=== PATIENT | female | born 1960 | race African-American/Black ===

== ENCOUNTER 2016-10-05 08:39 | Emergency (ER) | payer MEDICAID, OTHER ==
[~2016-10-05] VITALS: Ht 154.9 cm; Wt 94.0 kg
[~2016-10-05 08:39] MED LIST: ADVA250A INH; ALBU8I INH; AMLO5TAB22 PO; ENAL5TAB PO; HYDR-2768 PO; MONT10 PO; OMEP20.62 PO
[2016-10-05 08:41] VITALS: BP 189/124; PULSE 72; RESP 20; TEMP 98.6; O2SAT 97
[2016-10-05] MEDS ORDERED: MONT10TA4 PO (08:56)
[2016-10-05] MEDS ORDERED: VENTAER INH ×2 (08:56→11:12)
[2016-10-05] MEDS ORDERED: DESO0.0560 TOPICAL (08:56)
[2016-10-05] MEDS ORDERED: PULM180I INH (08:56)
[2016-10-05] MEDS ORDERED: VALS1TAB65 PO ×2 (08:56→11:12)
[2016-10-05] MEDS ORDERED: VALA500T PO (08:56)
[2016-10-05] MEDS ORDERED: OMEP20TA PO ×2 (08:56→11:12)
[2016-10-05] MEDS ORDERED: FLUT50SP EACH NARE (08:56)
[2016-10-05] MEDS ORDERED: SODIUM CHLORIDE 0.9% FLUSH 10 ML FLUSH IVF PRN (09:45)
--- NOTE | 2016-10-05 10:19 | RADRPT ---
EXAM DATE/TIME: 10/05/2016 10:07 [facility] COMPARISON: No previous studies available for comparison. INDICATIONS : Chest Pain, Hypertension MEDICAL HISTORY : None. SURGICAL HISTORY : None. ENCOUNTER: Initial ACUITY: 1 day PAIN SCORE: 4/10 LOCATION: Bilateral chest FINDINGS: PA and lateral views of the chest demonstrate the lungs to be symmetrically aerated without evidence of mass, infiltrate or effusion. The cardiomediastinal contours are unremarkable. Osseous structure s are intact. CONCLUSION: No acute disease. Dakotah Yan MD on October 05, 2016 at 10:16 Board Certified Radiologist. This report was verified electronically.
[2016-10-05 10:23] LABS: AUTOMATED NEUTROPHIL # 4.1 TH/MM3 (1.8-7.7); BASOPHIL % 0.5 % (0.0-2.0); EOSINOPHIL # 0.7 TH/MM3 (0-0.4); EOSINOPHIL % 9.6 % (0.0-4.0); HEMATOCRIT 40.8 % (35.0-46.0); HEMO FLAGS DIFF FINAL; LYMPH % 21.2 % (9.0-44.0); LYMPHOCYTE # 1.5 TH/MM3 (1.0-4.8); MEAN CELL VOLUME 82.8 FL (80.0-100.0); MEAN CORPUSCULAR HGB CONC 32.7 % (32.0-36.0); MONO % 9.3 % (0.0-8.0); NEUT % 59.4 % (16.0-70.0); PLATELET COUNT 225 TH/MM3 (150-450); RED BLOOD COUNT 4.92 MIL/MM3 (4.00-5.30); RED CELL DISTRIBUTION WIDTH 14.9 % (11.6-17.2); WHITE BLOOD COUNT 6.9 TH/MM3 (4.0-11.0)
--- NOTE | 2016-10-05 10:27 | PD ---
HPI Chief Complaint: Headache Time Seen by Provider: 09:38 Travel History International Travel<30 days: No Contact w/Intl Traveler<30days: No Traveled to known affect area: No History of Present Illness HPI Patient's 56-year-old female presents emergency department just not feeling well. Patient states that she was feeling a little achy this morning and has been sick with upper respiratory symptoms for the past few days. She went over to take a blood pressure noted to have markedly elevated. 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 She also endorses some mild headache which is in the sinus areas. Denies any fevers denies abdominal pain. She does endorse some darkening of urine on the review of systems. PFSH Past Medical History Anemia: Yes Asthma: Yes Cardiovascular Problems: Yes Diminished Hearing: No GERD: Yes Headaches: Yes Hypertension: Yes Respiratory: Yes Migraines: Yes : 4 Para: 3 Miscarriage: 1 : 0 Tubal Ligation: Yes Past Surgical History Hysterectomy: Yes Social History Alcohol Use: No Tobacco Use: No Substance Use: No Allergies-Medications (Allergen,Severity, Reaction): Coded Allergies: Penicillin (Verified Allergy, Severe, 10/05/16) Lopressor (Verified Adverse Reaction, Severe, 10/05/16) "RETAIN FLUID" Reported Meds & Prescriptions Reported Meds & Active Scripts Active Azithromycin 250 Mg Tab 250 Mg PO DIRECTED Take 2 tabs (500 mg) on day 1 then 1 tab daily x 4 days. Ventolin Hfa 18 GM Inh (Albuterol Sulfate) 90 Mcg/Act Aer 1 Puff INH Q4H PRN Omeprazole 20 Mg Tab 20 Mg PO DAILY Valsartan 160 Mg Tab 160 Mg PO DAILY Reported Valacyclovir (Valacyclovir HCl) 500 Mg Tab 500 Mg PO BID Desonide Topical (Desonide) 0.05% Cream 1 Applic TOPICAL BID Pulmicort Flexhaler (Budesonide Powder Inh) 180 Mcg/Act Inhp 180 Mcg INH Q12HR Fluticasone Nasal [place] 50 Mcg/Act Naspr 50 Mcg EACH NARE BID 50 mcg/spray Montelukast (Montelukast Sodium) 10 Mg Tab 10 Mg PO HS Review of Systems Except as stated in HPI: all other systems reviewed are Neg Physical Exam Narrative GENERAL: Well-developed well-nourished no apparent distress SKIN: Focused skin assessment warm/dry. HEAD: Atraumatic. Normocephalic. EYES: Pupils equal and round. No scleral icterus. No injection or drainage. ENT: No nasal bleeding or discharge. Mucous membranes pink and moist. TMs clear bilaterally, oropharynx clear and moist. NECK: Trachea midline. No JVD. CARDIOVASCULAR: Regular rate and rhythm. No murmur appreciated. RESPIRATORY: No accessory muscle use. Clear to auscultation. Breath sounds equal bilaterally. GASTROINTESTINAL: Abdomen soft, non-tender, nondistended. Hepatic and splenic margins not palpable. MUSCULOSKELETAL: No obvious deformities. No clubbing. No cyanosis. No edema. NEUROLOGICAL: Awake and alert. No obvious cranial nerve deficits. Motor grossly within normal limits. Normal speech. PSYCHIATRIC: Appropriate mood and affect; insight and judgment normal. Data Data Last Documented VS Vital Signs Date Time Temp Pulse Resp B/P Pulse Ox O2 Delivery O2 Flow Rate FiO2 10/05/16 11:31 98 10/05/16 11:30 Room Air 10/05/16 08:41 98.6 72 20 189/124 Orders Basic Metabolic Panel (Bmp) (10/05/16 09:38) Complete Blood Count With Diff (10/05/16 09:38) Magnesium (Mg) (10/05/16 09:38) Prothrombin Time / Inr (Pt) (10/05/16 09:38) Act Partial Throm Time (Ptt) (10/05/16 09:38) Troponin I (10/05/16 09:38) Ecg Monitoring (10/05/16 09:38) Iv Access Insert/Monitor (10/05/16 09:38) Oximetry (10/05/16 09:38) Oxygen Administration (10/05/16 09:38) Sodium Chloride 0.9% Flush (Ns Flush) (10/05/16 09:45) Chest, Pa & Lat (10/05/16 09:38) Urinalysis - C+S If Indicated (10/05/16 09:38) Acetaminophen (Tylenol) (10/05/16 11:15) Labs Laboratory Tests Test 10/05/16 10:00 White Blood Count 6.9 TH/MM3 Red Blood Count 4.92 MIL/MM3 Hemoglobin 13.3 GM/DL Hematocrit 40.8 % Mean Corpuscular Volume 82.8 FL Mean Corpuscular Hemoglobin 27.0 PG Mean Corpuscular Hemoglobin 32.7 % Concent Red Cell Distribution Width 14.9 % Platelet Count 225 TH/MM3 Mean Platelet Volume 9.2 FL Neutrophils (%) (Auto) 59.4 % Lymphocytes (%) (Auto) 21.2 % Monocytes (%) (Auto) 9.3 % Eosinophils (%) (Auto) 9.6 % Basophils (%) (Auto) 0.5 % Neutrophils # (Auto) 4.1 TH/MM3 Lymphocytes # (Auto) 1.5 TH/MM3 Monocytes # (Auto) 0.6 TH/MM3 Eosinophils # (Auto) 0.7 TH/MM3 Basophils # (Auto) 0.0 TH/MM3 CBC Comment DIFF FINAL Differential Comment Prothrombin Time 11.1 SEC Prothromb Time International 1.0 RATIO Ratio Activated Partial 32.6 SEC Thromboplast Time Urine Color YELLOW Urine Turbidity CLEAR Urine pH 6.5 Urine Specific [place] 1.024 Urine Protein NEG mg/dL Urine Glucose (UA) NEG mg/dL Urine Ketones NEG mg/dL Urine Occult Blood NEG Urine Nitrite NEG Urine Bilirubin NEG Urine Urobilinogen LESS THAN 2.0 MG/DL Urine Leukocyte Esterase NEG Urine RBC LESS THAN 1 /hpf Urine WBC 1 /hpf Urine Squamous Epithelial 2 /hpf Cells Urine Mucus FEW /lpf Microscopic Urinalysis Comment CULT NOT INDICATED Sodium Level 141 MEQ/L Potassium Level 3.8 MEQ/L Chloride Level 105 MEQ/L Carbon Dioxide Level 29.3 MEQ/L Anion Gap 7 MEQ/L Blood Urea Nitrogen 18 MG/DL Creatinine 1.04 MG/DL Estimat Glomerular Filtration 66 ML/MIN Rate Random Glucose 93 MG/DL Calcium Level 9.3 MG/DL Magnesium Level 2.3 MG/DL Troponin I LESS THAN 0.02 NG/ML MDM Medical Decision Making Medical Screen Exam Complete: Yes Emergency Medical Condition: Yes Differential Diagnosis URI, asymmetric hypertension, hypertensive emergency seems less likely. Narrative Course Patient was roomed in the emergency department, she appears well in no apparent distress. She is hypertensive but has been out of her medicines for some time. There is no indication for emergent lowering of blood pressure as she has no indication of end organ failure. She was initially offered medicine for her mild headache and declined, towards the end of the encounter she did request something was given Tylenol. No indication for imaging of her head. She stable for discharge. Diagnosis Primary Impression: Sinusitis Qualified Code: J01.11 - Acute recurrent frontal sinusitis Additional Impression: Hypertension Referrals: [facility] Med/Other Pt SpecificInfo: Prescription(s) given Scripts Azithromycin 250 Mg [id number] Mg PO DIRECTED #6 TAB Ref 0 Take 2 tabs (500 mg) on day 1 then 1 tab daily x 4 days. Prov:Austin Stone MD 10/05/16 Albuterol 18 GM Inh (Ventolin Hfa 18 GM Inh)90 Mcg/Act Aer1 Puff INH Q4H PRN ( SHORTNESS OF BREATH) #1 INHALER Ref 0 Prov:Austin Stone MD 10/05/16 Omeprazole 20 Mg Tab20 Mg PO DAILY #30 TAB Ref 0 Prov:Austin Stone MD 10/05/16 Valsartan 160 Mg [id number] Mg PO DAILY #30 TAB Ref 0 Prov:Austin Stone MD 10/05/16 Disposition: 01 DISCHARGE HOME Condition: Stable Austin Stone MD October 05, 2016 10:27
[2016-10-05 10:31] LABS: BLOOD, URINE NEG (NEG); COMMENT (UR) CULT NOT INDICATED; CULTURE IF INDICATED CULT NOT INDICATED; GLUCOSE,URINE NEG (NEG); KETONE, URINE NEG (NEG); MUCUS URINE FEW /lpf (OCC); NITRITE,URINE NEG (NEG); PH, URINE 6.5 (5.0-8.5); SQUAMOUS EPITHELIAL CELL URINE 2 /hpf (0-5); URINE COLOR YELLOW (YELLW/STRAW)
[2016-10-05 10:37] LABS: APTT (PATIENT) 32.6 SEC (24.3-30.1); PROTHROMBIN TIME - PATIENT 11.1 SEC (9.8-11.6)
[2016-10-05 10:56] LABS: ANION GAP 7 MEQ/L (5-15); BICARBONATE 29.3 MEQ/L (21.0-32.0); BLOOD UREA NITROGEN 18 MG/DL (7-18); CHLORIDE 105 MEQ/L (98-107); GLOMERULAR FILTRATION RATE 66 ML/MIN (>89); MAGNESIUM 2.3 MG/DL (1.5-2.5); POTASSIUM 3.8 MEQ/L (3.5-5.1); SODIUM (NA) 141 MEQ/L (136-145)
[2016-10-05] MEDS ORDERED: AZIT250T3 PO (11:12)
[2016-10-05] MEDS ORDERED: ACETAMINOPHEN 325 MG TAB PO ONE (11:15)
[2016-10-05 11:31] VITALS: O2SAT 98
== END 2016-10-05 11:40 | disposition home or self-care (01) ==
LOC: NEPC 08:39
DX: D64.9 Anemia, unspecified (principal); J32.9 Chronic sinusitis, unspecified; I10 Essential (primary) hypertension; R51 Headache; J45.909 Unspecified asthma, uncomplicated
CPT/HCPCS: 71020; 80048; 81001; 83735; 84484; 85025; 85610; 85730

== ENCOUNTER 2017-01-18 19:18 | Emergency (ER) | payer MEDICAID, OTHER ==
[~2017-01-18] VITALS: Ht 172.7 cm; Wt 94.0 kg
[~2017-01-18 19:18] MED LIST changes: -ADVA250A INH; -ALBU8I INH; -AMLO5TAB22 PO; +AZIT250T3 PO; +DESO0.0560 TOPICAL; -ENAL5TAB PO; +FLUT50SP EACH NARE; -HYDR-2768 PO; -MONT10 PO; +MONT10TA4 PO; -OMEP20.62 PO; +OMEP20TA PO; +PULM180I INH; +VALA500T PO; +VALS1TAB65 PO; +VENTAER INH
[2017-01-18 19:21] VITALS: BP 177/109; PULSE 85; RESP 16; TEMP 98.3; O2SAT 97
[2017-01-18] MEDS ORDERED: CHOL1CAP14 PO (21:58)
[2017-01-18 21:59] VITALS: BP 176/97; PULSE 75; RESP 18; O2SAT 98
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
[2017-01-18] MEDS ORDERED: ROBA500T PO (22:21)
[2017-01-18] MEDS ORDERED: NAPR500 PO (22:21)
== END 2017-01-18 22:44 | disposition home or self-care (01) ==
LOC: NEPE 19:18
DX: M79.1 Myalgia (principal); I10 Essential (primary) hypertension
CPT/HCPCS: 99283

== ENCOUNTER → 2017-03-19 | Outpatient (CLI) | payer OTHER ==
[~2017-03-19] MED LIST changes: -AZIT250T3 PO; +CHOL1CAP14 PO; +NAPR500 PO; +ROBA500T PO
--- NOTE | 2017-03-19 09:29 | RADRPT ---
EXAM DATE/TIME: 03/19/2017 09:15 [facility] COMPARISON: CHEST PA & LAT, October 05, 2016, 10:07. INDICATIONS : Hypertension. Asthma. MEDICAL HISTORY : Hypertension. Gastroesophageal reflux disease. Asthma. SURGICAL HISTORY : Tubal ligation. Hysterectomy. ENCOUNTER: Initial ACUITY: 3 days PAIN SCORE: 0/10 LOCATION: chest FINDINGS: Minimal bibasilar parenchymal changes without significant hyperinflation. The cardiomediastinal cont ours are unremarkable. Osseous structures are intact. CONCLUSION: Minimal bibasilar parenchymal changes. Bi Rashid MD FACR on March 19, 2017 at 9:27 Board Certified Radiologist. This report was verified electronically.
== END ==
LOC: HRAD 08:47
DX: I10 Essential (primary) hypertension (principal); J45.909 Unspecified asthma, uncomplicated; M54.2 Cervicalgia
CPT/HCPCS: 71020

== ENCOUNTER → 2017-10-15 | Outpatient (CLI) | payer OTHER ==
[~2017-10-15] MED LIST changes: -CHOL1CAP14 PO; +D 50CAP2 PO; +DICL75TA PO; -OMEP20TA PO; +OMEP20TA93 PO
--- NOTE | 2017-10-15 14:31 | RADRPT ---
EXAM DATE/TIME: 10/15/2017 12:54 [facility] COMPARISON: No previous studies available for comparison. INDICATIONS : Radiculopathy and Spina Bifida. MEDICAL HISTORY : Hypertension. Gastroesophageal reflux disease. Asthma SURGICAL HISTORY : Hysterectomy. Tubal ligation. ENCOUNTER: Initial ACUITY: 1 day PAIN SCORE: 0/10 LOCATION: Neck pain. FINDINGS: Five view examination was performed. Mild straightening of the lordotic curvature with multilevel de generative disc disease as evident by loss of disc height from C3-4 through C6-7. Marginal spurs are seen at multiple cervical levels. Oblique images show uncovertebral ridging encroaching on the neural foramina leftward at C6-7 and rightward at C5-6. Foramina otherwise appear to be intact. The dens is intact and the lateral masses are symmetric there prevertebral soft tissues are within normal limits . CONCLUSION: 1. Multilevel degenerative disc disease with some loss of disc height from C3-4 through C6-7. 2. Uncovertebral ridging encroaching on neural foramina rightward at C5-6 and leftward at C6-7. 3. No acute fracture or listhesis. Cody Dolan MD on October 15, 2017 at 14:26 Board Certified Radiologist. This report was verified electronically.
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
== END ==
LOC: HRAD 12:17
DX: M54.10 Radiculopathy, site unspecified (principal); Q05.9 Spina bifida, unspecified
CPT/HCPCS: 72050; 72110

== ENCOUNTER 2017-10-25 17:54 | Emergency (ER) | payer OTHER ==
[~2017-10-25 17:54] MED LIST changes: -DICL75TA PO
[2017-10-25 17:56] VITALS: BP 157/83; PULSE 85; RESP 16; TEMP 97.8; O2SAT 99
--- NOTE | 2017-10-25 19:30 | RADRPT ---
EXAM DATE: 10/25/2017 7:15 PM EDT AGE/SEX: 57 years / Female INDICATIONS: Right knee pain, fall. CLINICAL DATA: This is the patient's initial encounter. Patient reports that signs and symptoms have been present for 2 days and indicates a pain score of 8/10. MEDICAL/SURGICAL HISTORY: None. None. COMPARISON: No prior [facility] exams available for comparison. FINDINGS: Bony structures are intact and in normal alignment. Joints are intact without dislocation or signifi cant arthropathy. Osseous density is normal. Soft tissues are unremarkable. No radiopaque foreign bodies seen. CONCLUSION: No evidence of recent bony injury. Electronically signed by: Josef Duval MD 10/25/2017 7:29 PM EDT
[2017-10-25] MEDS ORDERED: DICL75TA PO (20:23)
--- NOTE | 2017-10-25 20:35 | PD ---
HPI Chief Complaint: Injury Time Seen by Provider: 18:24 Travel History International Travel<30 days: No Contact w/Intl Traveler<30days: No Traveled to known affect area: No History of Present Illness HPI 57-year-old female that presents to the ED for evaluation of right leg injury after fall. Patient had a mechanical fall yesterday where she lost her footing and her foot twisted. Per patient she is been having pain ever since in her leg but she is more concerned because she feels like her legs about to give out on her. She states that she has to walk in a certain way otherwise it will happen. She states that the pain currently 7 out of 10 is not as severe. She does have some bruising from the fall. She denies hitting her head or losing consciousness. No blood thinner use. No previous injury other than when she was younger. She denies ever having surgeries on the leg however. Allergy to latex and metoprolol and penicillin. Has been taking [id number] remedies with minimal relief. No chest pain or shortness of breath. No back or arm pain. No neck pain. PFSH Past Medical History Anemia: Yes Asthma: Yes Cardiovascular Problems: Yes Diminished Hearing: No GERD: Yes Headaches: Yes Hypertension: Yes Respiratory: Yes Migraines: Yes : 4 Para: 3 Miscarriage: 1 : 0 Tubal Ligation: Yes Past Surgical History Hysterectomy: Yes Social History Alcohol Use: No Tobacco Use: No Substance Use: No Allergies-Medications (Allergen,Severity, Reaction): Coded Allergies: penicillin G (Unverified Allergy, Severe, 10/25/17) latex (Verified Allergy, Unknown, 10/25/17) metoprolol (Unverified Adverse Reaction, Severe, 10/25/17) "RETAIN FLUID" Reported Meds & Prescriptions Reported Meds & Active Scripts Active Diclofenac Sodium DR (Diclofenac Sodium) 75 Mg Tabdr 75 Mg PO BID PRN Robaxin (Methocarbamol) 500 Mg Tab 500 Mg PO Q8HR PRN Naprosyn (Naproxen) 500 Mg Tab 500 Mg PO Q12HR PRN Ventolin Hfa 18 GM Inh (Albuterol Sulfate) 90 Mcg/Act Aer 1 Puff INH Q4H PRN Omeprazole 20 Mg Tab 20 Mg PO DAILY Valsartan 160 Mg Tab 160 Mg PO DAILY Reported D3 Maximum Strength (Cholecalciferol) 5,000 Unit Cap 2,000 Units PO DAILY Valacyclovir (Valacyclovir HCl) 500 Mg Tab 500 Mg PO BID Desonide Topical (Desonide) 0.05% Cream 1 Applic TOPICAL BID Pulmicort Flexhaler (Budesonide Powder Inh) 180 Mcg/Act Inhp 180 Mcg INH Q12HR Fluticasone Nasal [place] 50 Mcg/Act Naspr 50 Mcg EACH NARE BID 50 mcg/spray Montelukast (Montelukast Sodium) 10 Mg Tab 10 Mg PO HS Review of Systems Except as stated in HPI: all other systems reviewed are Neg Physical Exam Narrative GENERAL: SKIN: Warm and dry. HEAD: Atraumatic. Normocephalic. EYES: Pupils equal and round. No scleral icterus. No injection or drainage. ENT: No nasal bleeding or discharge. Mucous membranes pink and moist. Tongue is midline. No uvula deviation. NECK: Trachea midline. No JVD. CARDIOVASCULAR: Regular rate and rhythm. No murmurs, S3, S4. RESPIRATORY: No accessory muscle use. Clear to auscultation. Breath sounds equal bilaterally. GASTROINTESTINAL: Abdomen soft, non-tender, nondistended. Hepatic and splenic margins not palpable. MUSCULOSKELETAL: Extremities without clubbing, cyanosis, or edema. No obvious deformities. Full range of motion of the upper and lower extremities bilaterally. 2+ pulses bilaterally. Valgus and varus test negative. Anterior- posterior drawer test negative. Patient does have some bruising noted on the medial and lateral aspect of the knee. No obvious bony deformity noted. Sensation intact bilaterally. 2+ pulses bilaterally. She does have a bruise to the right tib-fib but no sign of bony injury or pain on the bones themselves. NEUROLOGICAL: Awake and alert. No obvious cranial nerve deficits. Motor grossly within normal limits. Five out of 5 muscle strength in the arms and legs. Normal speech. PSYCHIATRIC: Appropriate mood and affect; insight and judgment normal. Data Data Last Documented VS Vital Signs Date Time Temp Pulse Resp B/P (MAP) Pulse Ox O2 Delivery O2 Flow Rate FiO2 10/25/17 18:34 78 16 99 Room Air 10/25/17 17:56 97.8 157/83 (107) Orders Orders Knee, Complete (4vws) (10/25/17 ) Splint Or Brace Apply/Monitor (10/25/17 19:34) Ed Discharge Order (10/25/17 20:29) MDM Medical Decision Making Medical Screen Exam Complete: Yes Emergency Medical Condition: Yes Medical Record Reviewed: Yes Interpretation(s) Last Impressions Knee X-Ray 10/25/17 0000 Signed Impressions: CONCLUSION: No evidence of recent bony injury. Differential Diagnosis Fracture versus sprain versus strain versus bruise versus contusion Narrative Course 57-year-old female that presents to the ED for evaluation of right knee injury. Patient was properly examined and was found to have signs and symptoms concerning for fracture and muscular skeletal injury. X-rays were ordered. X- rays were negative for acute disease. Patient was reassured. Patient was put on crutches and brace. Given a prescription for diclofenac sent for pain. Told to follow-up with orthopedic doctor. See ED worsening symptoms. Diagnosis Primary Impression: Knee pain, acute Qualified Codes: M25.561 - Pain in right knee Patient Instructions: General Instructions Additional Instructions: Take medication as prescribed. Ice or warm compresses to the area as needed. Follow-up with PCP. See ED if worsening symptoms. Med/Other Pt SpecificInfo: Prescription(s) given Scripts Diclofenac Sodium DR (Diclofenac Sodium DR) 75 Mg Tabdr 75 MG PO BID Y for PAIN SCALE 1 TO 10, #20 TAB 0 Refills Prov: Jakob Albright MD 10/25/17 Disposition: 01 DISCHARGE HOME Condition: Stable Royer Hutchinson October 25, 2017 20:35
== END 2017-10-25 20:44 | disposition home or self-care (01) ==
LOC: NEPE 17:54
DX: M25.561 Pain in right knee (principal); K21.9 Gastro-esophageal reflux disease without esophagitis; J45.909 Unspecified asthma, uncomplicated
CPT/HCPCS: 73564; 99283; E0113; L1830